=== PATIENT | male | born 1955 | race Caucasian/White ===

== ENCOUNTER → 2019-01-10 | Outpatient (CLI) | payer BC ==
[2019-01-10 10:32] LABS: INR 1.1 (<1.2); Prothrombin Time 11.1 sec (9.0-12.0)
== END ==
LOC: LABWHC1 09:40
PROVIDERS: ATTEND Dentist Oral and Maxillofacial Surgery
DX: D68.9 Coagulation defect, unspecified (principal)
CPT/HCPCS: 36415; 85610